=== PATIENT | male | born 1970 | race Caucasian/White ===

== ENCOUNTER 2021-08-24 17:03 | Emergency (ER) | payer MEDICAID ==
[~2021-08-24] VITALS: Ht 180.3 cm; Wt 99.0 kg
[2021-08-24] MEDS ORDERED: blood pressure PO (17:06)
[2021-08-24] MEDS ORDERED: LIDOCAINE 1% 10 ML VIAL ID ONE (18:15)
[2021-08-24] MEDS ORDERED: PERTUSS(ACELL),DIPH,TET VAC/PF 0.5 ML SYRINGE IM. ONE (18:15)
[2021-08-24 20:00] VITALS: BP 128/88
== END 2021-08-24 20:15 | disposition home or self-care (01) ==
LOC: EMS 17:09
DX: S01.112A Laceration without foreign body of left eyelid and periocular area, initial encounter (principal); F10.129 Alcohol abuse with intoxication, unspecified; I10 Essential (primary) hypertension; F17.210 Nicotine dependence, cigarettes, uncomplicated; W10.9XXA Fall (on) (from) unspecified stairs and steps, initial encounter; Y93.01 Activity, walking, marching and hiking; Y92.89 Other specified places as the place of occurrence of the external cause; Y99.8 Other external cause status
CPT/HCPCS: 12015; 70450; 72125; 90471; 90715; 99284; J3490; 12013